=== PATIENT | male | born 1950 | race Hispanic/Latino ===

== ENCOUNTER 2021-02-11 08:58 | Day surgery (SDC) | payer OTHER, MEDICARE ==
[2021-02-11] MEDS ORDERED: Acetaminophen 500 MG TAB PO PRN ×2 (09:13→09:16)
[2021-02-11] MEDS ORDERED: Vedolizumab 300 MG in Sodium Chloride 0.9% 250 ML 250 ML IVPB SCH (09:15)
[2021-02-11 10:13] VITALS: BP 142/92
== END 2021-02-11 12:57 | disposition home or self-care (01) ==
LOC: ONC/OP 08:58
PROVIDERS: ATTEND Internal Medicine Gastroenterology
DX: K51.90 Ulcerative colitis, unspecified, without complications (principal)
CPT/HCPCS: 96413; J3380; J7050

== ENCOUNTER → 2021-02-25 | Day surgery (SDC) | payer OTHER, MEDICARE ==
[~2021-02-25] MED LIST: Acetaminophen 500 MG TAB PO PRN; Sodium Chloride 0.9% 20 ML ONE; Vedolizumab 300 MG in Sodium Chloride 0.9% 250 ML 250 ML IVPB SCH
[2021-02-25 09:08] VITALS: BP 149/87; TEMP 98
== END ==
LOC: ONC/OP 08:45
PROVIDERS: ATTEND Internal Medicine Gastroenterology
DX: K51.90 Ulcerative colitis, unspecified, without complications (principal)
CPT/HCPCS: 96413; J3380; J7050

== ENCOUNTER 2021-03-25 08:53 | Day surgery (SDC) | payer MEDICARE, OTHER ==
[~2021-03-25 08:53] MED LIST changes: +Sodium Chloride 0.9% 1,000 ML IV SCH; -Sodium Chloride 0.9% 20 ML ONE
[2021-03-25] MEDS ORDERED: Sodium Chloride 0.9% 20 ML ONE (09:12)
[2021-03-25 11:13] VITALS: BP 151/73; TEMP 97.7
== END 2021-03-25 11:14 | disposition home or self-care (01) ==
LOC: ONC/OP 08:53
PROVIDERS: ATTEND Internal Medicine Gastroenterology
DX: K51.90 Ulcerative colitis, unspecified, without complications (principal)
CPT/HCPCS: 96413; J3380; J7050

== ENCOUNTER → 2021-05-16 | Day surgery (SDC) | payer MEDICARE ==
[2021-05-16 09:26] VITALS: BP 125/77; TEMP 98.1
== END ==
LOC: ONC/OP 08:43
PROVIDERS: ATTEND Internal Medicine Gastroenterology
DX: K51.90 Ulcerative colitis, unspecified, without complications (principal)
CPT/HCPCS: 96413; J3380; J7050

== ENCOUNTER 2021-09-05 08:30 | Day surgery (SDC) | payer MEDICARE ==
[2021-09-05] MEDS ORDERED: Sodium Chloride 0.9% 10 ML ONE (08:40)
[2021-09-05 09:38] VITALS: BP 118/69; TEMP 97.9
== END 2021-09-05 13:34 | disposition home or self-care (01) ==
LOC: ONC/OP 08:30
PROVIDERS: ATTEND Internal Medicine Gastroenterology
DX: K51.90 Ulcerative colitis, unspecified, without complications (principal)
CPT/HCPCS: 96413; J3380; J7050

== ENCOUNTER 2021-10-31 08:14 | Day surgery (SDC) | payer MEDICARE ==
[2021-10-31 08:49] VITALS: BP 121/81; TEMP 97.9
== END 2021-10-31 13:52 | disposition home or self-care (01) ==
LOC: ONC/OP 08:14
PROVIDERS: ATTEND Internal Medicine Gastroenterology
DX: K51.90 Ulcerative colitis, unspecified, without complications (principal)
CPT/HCPCS: 96413; J3380; J7050

== ENCOUNTER 2021-12-26 09:00 | Day surgery (SDC) | payer MEDICARE ==
[~2021-12-26 09:00] MED LIST changes: -Acetaminophen 500 MG TAB PO PRN; +Acetaminophen 500 MG TAB PO SCH; -Sodium Chloride 0.9% 1,000 ML IV SCH
[2021-12-26 09:27] VITALS: BP 134/78; TEMP 98.7
== END 2021-12-26 10:36 | disposition home or self-care (01) ==
LOC: ONC/OP 09:00
PROVIDERS: ATTEND Internal Medicine Gastroenterology
DX: K51.90 Ulcerative colitis, unspecified, without complications (principal)
CPT/HCPCS: 96413; J3380; J7050

== ENCOUNTER 2022-02-20 09:01 | Day surgery (SDC) | payer MEDICARE ==
[~2022-02-20 09:01] MED LIST changes: -Vedolizumab 300 MG in Sodium Chloride 0.9% 250 ML 250 ML IVPB SCH
[2022-02-20 09:34] VITALS: BP 158/78; TEMP 98.2
[2022-02-20] MEDS ORDERED: Vedolizumab 300 MG in Sodium Chloride 0.9% 250 ML 250 ML IVPB SCH (10:00)
== END 2022-02-20 13:21 | disposition home or self-care (01) ==
LOC: ONC/OP 09:01
PROVIDERS: ATTEND Internal Medicine Gastroenterology
DX: K51.90 Ulcerative colitis, unspecified, without complications (principal)
CPT/HCPCS: 96413; J3380; J7050

== ENCOUNTER 2022-04-21 12:56 | Day surgery (SDC) | payer MEDICARE ==
[2022-04-21] MEDS ORDERED: Vedolizumab 300 MG in Sodium Chloride 0.9% 250 ML 250 ML IVPB SCH (13:45)
[2022-04-21 13:55] VITALS: BP 135/63; TEMP 98.1
[2022-04-21] MEDS ORDERED: Acetaminophen 500 MG TAB ONE ×2 (13:55)
[2022-04-21] MEDS ORDERED: Acetaminophen 500 MG TAB PO SCH (14:15)
== END 2022-04-21 16:33 | disposition home or self-care (01) ==
LOC: ONC/OP 12:56
PROVIDERS: ATTEND Internal Medicine Gastroenterology
DX: K51.90 Ulcerative colitis, unspecified, without complications (principal)
CPT/HCPCS: 96413; J3380; J7050

== ENCOUNTER 2022-06-16 08:37 | Day surgery (SDC) | payer MEDICARE ==
[2022-06-16] MEDS ORDERED: Acetaminophen 500 MG TAB PO SCH (09:00)
[2022-06-16] MEDS ORDERED: Vedolizumab 300 MG in Sodium Chloride 0.9% 250 ML 250 ML IVPB SCH (09:00)
[2022-06-16] MEDS ORDERED: Acetaminophen 500 MG TAB ONE ×2 (10:08)
[2022-06-16 10:56] VITALS: BP 141/90; TEMP 98.2
== END 2022-06-16 10:56 | disposition home or self-care (01) ==
LOC: ONC/OP 08:37
PROVIDERS: ATTEND Internal Medicine Gastroenterology
DX: K51.90 Ulcerative colitis, unspecified, without complications (principal)
CPT/HCPCS: 96413; J3380; J7050

== ENCOUNTER 2022-08-14 08:47 | Day surgery (SDC) | payer MEDICARE ==
[~2022-08-14 08:47] MED LIST changes: +Vedolizumab 300 MG in Sodium Chloride 0.9% 250 ML 250 ML IVPB SCH
[2022-08-14] MEDS ORDERED: Acetaminophen 500 MG TAB ONE (08:55)
[2022-08-14 09:09] VITALS: BP 147/88; TEMP 97.8
== END 2022-08-14 17:39 | disposition home or self-care (01) ==
LOC: ONC/OP 08:47
PROVIDERS: ATTEND Internal Medicine Gastroenterology
DX: K51.90 Ulcerative colitis, unspecified, without complications (principal)
CPT/HCPCS: 96413; J3380; J7050

== ENCOUNTER 2022-10-09 08:45 | Day surgery (SDC) | payer MEDICARE ==
[2022-10-09] MEDS ORDERED: Acetaminophen 500 MG TAB ONE (09:44)
[2022-10-09 10:05] VITALS: BP 152/87; TEMP 98
[2022-10-09] MEDS ORDERED: FLU VACC QS2022-23(65YR UP)/PF 240 MCG/0.7 ML SYRINGE IM ONE (10:45)
== END 2022-10-09 10:40 | disposition home or self-care (01) ==
LOC: ONC/OP 08:45
PROVIDERS: ATTEND Internal Medicine Gastroenterology
DX: K51.90 Ulcerative colitis, unspecified, without complications (principal)
CPT/HCPCS: 96413; J3380; J7050

== ENCOUNTER 2023-03-26 08:36 | Day surgery (SDC) | payer MEDICARE ==
[2023-03-26 09:04] VITALS: BP 124/69; TEMP 98
[2023-03-26] MEDS ORDERED: Acetaminophen 500 MG TAB ONE (09:11)
[2023-03-26] MEDS ORDERED: diphenhydrAMINE 50 MG/ML VIAL IVP PRN (09:15)
[2023-03-26] MEDS ORDERED: EPINEPHrine 1 MG/ML AMP IM PRN (09:15)
[2023-03-26] MEDS ORDERED: Sodium Chloride 0.9% 500 ML IV PRN (09:15)
[2023-03-26] MEDS ORDERED: Acetaminophen 500 MG TAB PO SCH (09:15)
[2023-03-26] MEDS ORDERED: Vedolizumab 300 MG in Sodium Chloride 0.9% 250 ML 250 ML IVPB SCH ×2 (09:15→09:45)
== END 2023-03-26 11:00 | disposition home or self-care (01) ==
LOC: ONC/OP 08:36
PROVIDERS: ATTEND Internal Medicine Gastroenterology
DX: K51.90 Ulcerative colitis, unspecified, without complications (principal)
CPT/HCPCS: 96413; J3380; J7050

== ENCOUNTER 2023-05-21 09:07 | Day surgery (SDC) | payer MEDICARE ==
[2023-05-21 09:36] VITALS: BP 128/84; TEMP 97.6
== END 2023-05-21 11:50 | disposition home or self-care (01) ==
LOC: ONC/OP 09:07
PROVIDERS: ATTEND Internal Medicine Gastroenterology
DX: K51.90 Ulcerative colitis, unspecified, without complications (principal)
CPT/HCPCS: 96413; J3380; J7050

== ENCOUNTER 2023-09-10 08:34 | Day surgery (SDC) | payer MEDICARE ==
[~2023-09-10 08:34] MED LIST changes: -Acetaminophen 500 MG TAB PO SCH
[2023-09-10] MEDS ORDERED: Acetaminophen 500 MG TAB ONE (09:05)
[2023-09-10] MEDS: Acetaminophen 500 MG TAB PO SCH (09:05)
[2023-09-10 09:34] VITALS: BP 134/76; TEMP 98
[2023-09-10] MEDS: Vedolizumab 300 MG in Sodium Chloride 0.9% 250 ML 250 ML IVPB SCH (09:38)
== END 2023-09-10 10:27 | disposition home or self-care (01) ==
LOC: ONC/OP 08:34
PROVIDERS: ATTEND Internal Medicine Gastroenterology
DX: K51.90 Ulcerative colitis, unspecified, without complications (principal)
CPT/HCPCS: 96413; J3380; J7050

== ENCOUNTER 2024-01-15 08:42 | Day surgery (SDC) | payer MEDICARE ==
[2024-01-15 09:18] VITALS: BP 120/69; TEMP 97.7
[2024-01-15] MEDS: Vedolizumab 300 MG, Sterile Water 5 ML in Sodium Chloride 0.9% 250 ML 250 ML IVPB SCH (10:08)
[2024-01-15] MEDS ORDERED: Acetaminophen 500 MG TAB ONE (10:13)
[2024-01-15] MEDS: Acetaminophen 500 MG TAB PO SCH (10:15)
== END 2024-01-15 10:53 | disposition home or self-care (01) ==
LOC: ONC/OP 08:42
PROVIDERS: ATTEND Internal Medicine Gastroenterology
DX: K51.90 Ulcerative colitis, unspecified, without complications (principal)
CPT/HCPCS: 96413; J3380; J7050

== ENCOUNTER 2024-03-03 08:35 | Day surgery (SDC) | payer MEDICARE ==
[2024-03-03 09:16] VITALS: BP 142/87; TEMP 98.1
[2024-03-03] MEDS ORDERED: Acetaminophen 325 MG TAB ONE (09:49)
[2024-03-03] MEDS: Acetaminophen 325 MG TAB PO SCH (09:49)
[2024-03-03] MEDS: Vedolizumab 300 MG in Sodium Chloride 0.9% 250 ML 250 ML IVPB SCH (09:50)
== END 2024-03-03 10:39 | disposition home or self-care (01) ==
LOC: ONC/OP 08:35
PROVIDERS: ATTEND Internal Medicine Gastroenterology
DX: K51.90 Ulcerative colitis, unspecified, without complications (principal)
CPT/HCPCS: 96413; J3380; J7050